=== PATIENT | male | born 1970 | race Caucasian/White ===

== ENCOUNTER 2016-04-22 19:34 | Emergency (ER) | payer OTHER ==
[~2016-04-22] VITALS: Ht 177.8 cm; Wt 120.4 kg
[~2016-04-22 19:34] MED LIST: FIORICET 50-301 EACH PO; GEMFIBROZIL600 MG PO; GLUCOPHAGE1000 M1 PO; GLUCOTROL5 MG PO; HYDROCODON-ACE1 EAC7 PO; IMITREX25 MG PO; LISINOPRIL10 MG PO; LISINOPRIL5 MG PO; LOPID600 MG PO; MOTRIN800 MG PO; NAPROSYN500 MG PO; NAPROXEN500 MG PO; PREDNISONE10 MG PO; PREDNISONE20 MG PO; PRINIVIL20 MG PO; TYLENOL WITH C1 EACH PO; ULTRAM50 MG PO; VALIUM5 MG PO; ZOCOR20 MG PO; ZOCOR40 MG PO; ZOFRAN ODT4 MG PO
[2016-04-22 20:25] LABS: HEMATOCRIT 44.7 % (38.0-50.0); MCH 28.9 PG (29.0-34.0); MCHC 35.6 G/DL (30.0-36.0); MCV 81.3 FL (86-99); MEAN PLAT.VOLUME 9.7 uM^3 (9.0-12.4); PLATELET COUNT 261 K/uL (156-360); RBC DIS.WIDTH-CV 12.6 % (11.8-14.6); RBC DIS.WIDTH-SD 37.1 % (39-53); WHITE BLOOD COUNT 8.6 K/uL (4.1-10.2)
[2016-04-22 20:34] LABS: CHLORIDE 102 mEq/L (99-109); POTASSIUM 4.1 mEq/L (3.7-5.4); SODIUM 139 mEq/L (136-147)
[2016-04-22 20:36] LABS: GLUCOSE 178 mg/dL (70-99)
[2016-04-22 20:37] LABS: ANION GAP 11 MEQ/L (2-14)
[2016-04-22 20:38] LABS: TOTAL BILIRUBIN 0.4 mg/dL (0.0-1.0)
[2016-04-22 20:40] LABS: ALKALINE PHOSPHATASE 34 IU/L (3-129); GFR ESTIMATE (CALCULATED) > 59 mL/min/
[2016-04-22 20:41] LABS: UREA NITROGEN (BUN) 22 mg/dL (9-23)
[2016-04-22 20:43] LABS: LIPASE 40 U/L (1.0-51.0)
[2016-04-22] MEDS ORDERED: ZOFRAN4 MG PO (22:00)
[2016-04-22] MEDS ORDERED: BENTYL10 MG PO (22:00)
[2016-04-22 22:34] VITALS: BP 149/104
== END 2016-04-22 22:35 | disposition home or self-care (01) ==
LOC: EXP 19:34 → EME 19:34 → EXP 22:35
DX: T62.91XA Toxic effect of unspecified noxious substance eaten as food, accidental (unintentional), initial encounter (principal); S53.402A Unspecified sprain of left elbow, initial encounter; I10 Essential (primary) hypertension; E11.9 Type 2 diabetes mellitus without complications; E78.5 Hyperlipidemia, unspecified; W22.09XA Striking against other stationary object, initial encounter
CPT/HCPCS: 73080; 80053; 81003; 83690; 85027; 99281; 99284

== ENCOUNTER 2016-06-22 14:29 | Emergency (ER) | payer OTHER ==
[~2016-06-22] VITALS: Ht 177.8 cm; Wt 120.0 kg
[~2016-06-22 14:29] MED LIST changes: +BENTYL10 MG PO; +ZOFRAN4 MG PO
[2016-06-22 14:32] VITALS: BP 144/97
[2016-06-22] MEDS ORDERED: VENTOLIN HFA18 GM IH (15:10)
[2016-06-22] MEDS ORDERED: TESSALON200 MG PO (15:10)
== END 2016-06-22 15:25 | disposition home or self-care (01) ==
LOC: EME 14:29
DX: J06.9 Acute upper respiratory infection, unspecified (principal)
CPT/HCPCS: 71020; 99281; 99284

== ENCOUNTER 2016-09-08 19:33 | Emergency (ER) | payer OTHER ==
[~2016-09-08] VITALS: Ht 177.8 cm; Wt 116.0 kg
[~2016-09-08 19:33] MED LIST changes: +TESSALON200 MG PO; +VENTOLIN HFA18 GM IH
[2016-09-08] MEDS ORDERED: LIDODERM 5% P1 PATCH TD (20:37)
[2016-09-08] MEDS ORDERED: NORCO 7.5/321 TABLET PO (20:37)
[2016-09-08] MEDS ORDERED: VALIUM5 MG PO (20:37)
[2016-09-08] MEDS ORDERED: INDOCIN50 MG PO (20:37)
[2016-09-08] MEDS ORDERED: PREDNISONE20 MG PO (20:37)
[2016-09-08 21:13] VITALS: BP 124/74
== END 2016-09-08 21:15 | disposition home or self-care (01) ==
LOC: EME 19:33
DX: M51.36 Other intervertebral disc degeneration, lumbar region (principal); M54.31 Sciatica, right side; E11.9 Type 2 diabetes mellitus without complications
CPT/HCPCS: 99281; 99284; J7512

== ENCOUNTER 2016-10-14 15:16 | Emergency (ER) | payer OTHER ==
[~2016-10-14] VITALS: Ht 177.8 cm; Wt 114.5 kg
[~2016-10-14 15:16] MED LIST changes: +INDOCIN50 MG PO; +LIDODERM 5% P1 PATCH TD; +NORCO 7.5/321 TABLET PO
[2016-10-14 16:21] LABS: HEMATOCRIT 43.9 % (38.0-50.0); MCH 29.4 PG (29.0-34.0); MCHC 35.1 G/DL (30.0-36.0); MCV 83.8 FL (86-99); MEAN PLAT.VOLUME 9.5 uM^3 (9.0-12.4); PLATELET COUNT 214 K/uL (156-360); RBC DIS.WIDTH-CV 12.4 % (11.8-14.6); RBC DIS.WIDTH-SD 37.7 % (39-53); RED BLOOD COUNT 5.24 M/uL (4.00-5.50)
[2016-10-14 16:38] LABS: CHLORIDE 103 mEq/L (99-109); SODIUM 138 mEq/L (136-147)
[2016-10-14 16:40] LABS: GLUCOSE 213 mg/dL (70-99)
[2016-10-14 16:41] LABS: ANION GAP 9 MEQ/L (2-14)
[2016-10-14 16:44] LABS: GFR ESTIMATE (CALCULATED) > 59 mL/min/; UREA NITROGEN (BUN) 12 mg/dL (9-23)
[2016-10-14 18:11] LABS: TROP-I INTERPRETATION NEGATIVE; TROPONIN-I < 0.01 ng/mL (0.0-0.30)
[2016-10-14 18:36] LABS: ADD MIUA? YES; BILIRUBIN NEGATIVE; BLOOD NEGATIVE; COLOR YELLOW ((YELLOW)); GLUCOSE (STRIP) 150; KETONES NEGATIVE; LEUKOCYTES NEGATIVE; NITRITE NEGATIVE; PROTEIN (STRIP) 30; SPECIFIC GRAVITY 1.024 (1.000-1.030); UROBILINOGEN 0.2 MG/DL (0.2-1.0)
[2016-10-14 18:42] LABS: BACTERIA NONE SEEN /HPF; EPITHELIAL CELLS RARE /HPF; HYALINE CASTS 0-5 /LPF; MUCUS 4+ /LPF; RED BLOOD CELLS 0-5 /HPF (0-5); UCUL ADDED? NO; WHITE BLOOD CELLS 0-5 /HPF (0-5)
[2016-10-14] MEDS ORDERED: FLEXERIL5 MG PO (19:44)
[2016-10-14] MEDS ORDERED: NORCO 5/3251 TABLET PO (19:44)
[2016-10-14 19:51] VITALS: BP 149/95
== END 2016-10-14 19:52 | disposition home or self-care (01) ==
LOC: EME 15:16
DX: M54.5 Low back pain (principal); R07.9 Chest pain, unspecified; G89.29 Other chronic pain; M47.896 Other spondylosis, lumbar region; I10 Essential (primary) hypertension; E11.9 Type 2 diabetes mellitus without complications; E78.5 Hyperlipidemia, unspecified; Z79.84 Long term (current) use of oral hypoglycemic drugs
CPT/HCPCS: 71020; 80048; 81003; 84484; 85027; 93005; 99281; 99284

== ENCOUNTER 2017-04-15 16:50 | Observation (INO) | payer OTHER ==
[~2017-04-15] VITALS: Ht 177.8 cm; Wt 115.0 kg
[~2017-04-15 16:50] MED LIST changes: +FLEXERIL5 MG PO; +NORCO 5/3251 TABLET PO
[2017-04-15 17:55] LABS: BASOPHIL (%) 0.4 % (0-1); EOSINOPHIL (%) 0.9 % (0-5); EOSINOPHIL COUNT 0.1 K/uL (0-0.3); HEMATOCRIT 40.2 % (38.0-50.0); HEMOGLOBIN 14.3 G/DL (12.5-16.6); IMMATURE GRANULOCYTE (%) 0.4 % (0.0-0.7); LYMPHOCYTE (%) 24.7 % (15-42); LYMPHOCYTE COUNT 1.4 K/uL (1.0-2.8); MCHC 35.6 G/DL (30.0-36.0); MCV 81.5 FL (86-99); MONOCYTE (%) 6.7 % (3-12); MONOCYTE COUNT 0.4 K/uL (0-0.8); NEUTROPHIL (%) 66.9 % (45-76); NEUTROPHIL COUNT 3.7 K/uL (1.8-6.4); PLATELET COUNT 183 K/uL (156-360); RBC DIS.WIDTH-CV 11.9 % (11.8-14.6); RBC DIS.WIDTH-SD 34.8 % (39-53); RED BLOOD COUNT 4.93 M/uL (4.00-5.50); WHITE BLOOD COUNT 5.5 K/uL (4.1-10.2)
[2017-04-15 18:04] LABS: CHLORIDE 101 mEq/L (99-109); POTASSIUM 4.1 mEq/L (3.7-5.4); PTT 29.1 SEC (25-37); SODIUM 134 mEq/L (136-147)
[2017-04-15 18:09] LABS: CREATININE 1.1 mg/dL (0.6-1.3); GFR ESTIMATE (CALCULATED) > 59 mL/min/ (58.99-99999)
[2017-04-15 18:10] LABS: UREA NITROGEN (BUN) 15 mg/dL (9-23)
[2017-04-15 18:16] LABS: TROP-I INTERPRETATION NEGATIVE; TROPONIN-I < 0.01 ng/mL (0.0-0.30)
[2017-04-15 18:19] LABS: GLUCOSE 536 mg/dL (70-99)
[2017-04-15] MEDS ORDERED: LISINOPRIL20 MG PO (22:23)
[2017-04-15] MEDS ORDERED: GLIPIZIDE5 MG PO (22:23)
[2017-04-15] MEDS ORDERED: ATORVASTATIN CA80 MG PO (22:24)
[2017-04-15 22:58] LABS: Estimated Average Glucose 306 mg/dL (70-123)
[2017-04-15 23:18] LABS: HDL CHOLESTEROL 29 MG/DL (Desirable>=40); LDL CHOLESTEROL 56 mg/dL (Desirable<100); NON-HDL CHOLESTEROL 111 mg/dL (Desirable<160); TOTAL CHOLESTEROL 140 mg/dL (Desirable<200); TRIGLYCERIDES 275 MG/DL (Normal: <150)
[2017-04-15 23:25] VITALS: BP 144/91
[2017-04-16 04:30] VITALS: BP 116/58
[2017-04-16 06:16] LABS: HEMOGLOBIN A1c (GLYCOHEMOGLOB) 12.3 % HGB (Below 5.7)
[2017-04-16 11:33] VITALS: BP 146/90
[2017-04-16] MEDS ORDERED: ASPIR-LOW81 MG PO (12:09)
[2017-04-16] MEDS ORDERED: NOVOLIN N100 UNITS/ SC (12:40)
== END 2017-04-16 13:20 | disposition home or self-care (01) ==
LOC: EME 16:50 → EDOF 21:53 → 5WEST 21:53 → EDOF 21:53 → ENRESERV 21:57 → 5WEST 22:57
PROVIDERS: Emergency Medicine; Hospitalist
DX: G45.9 Transient cerebral ischemic attack, unspecified (principal); E11.65 Type 2 diabetes mellitus with hyperglycemia; I10 Essential (primary) hypertension; Z86.73 Personal history of transient ischemic attack (TIA), and cerebral infarction without residual deficits; E78.5 Hyperlipidemia, unspecified; T38.3X6A Underdosing of insulin and oral hypoglycemic [antidiabetic] drugs, initial encounter; Z91.120 Patient's intentional underdosing of medication regimen due to financial hardship; E66.9 Obesity, unspecified; E87.1 Hypo-osmolality and hyponatremia; Z79.84 Long term (current) use of oral hypoglycemic drugs; Z82.49 Family history of ischemic heart disease and other diseases of the circulatory system
CPT/HCPCS: 70450; 70551; 71010; 80048; 80061; 82948; 83036; 84443; 84484; 85025; 85610; 85730; 93005; 93880; 99281; 99285; G0378; J1650; J1815; J7030

== ENCOUNTER 2017-06-22 21:41 | Emergency (ER) | payer OTHER ==
[~2017-06-22] VITALS: Ht 177.8 cm; Wt 127.5 kg
[~2017-06-22 21:41] MED LIST changes: +ASPIR-LOW81 MG PO; +ATORVASTATIN CA80 MG PO; +GLIPIZIDE5 MG PO; +LISINOPRIL20 MG PO; +NOVOLIN N100 UNITS/ SC
[2017-06-22] MEDS ORDERED: ZOFRAN ODT4 MG PO (23:11)
[2017-06-22] MEDS ORDERED: ULTRAM50 MG PO (23:11)
[2017-06-22 23:46] VITALS: BP 148/86
== END 2017-06-22 23:48 | disposition home or self-care (01) ==
LOC: EME 21:41
DX: S06.0X0A Concussion without loss of consciousness, initial encounter (principal); Y04.2XXA Assault by strike against or bumped into by another person, initial encounter; Y92.149 Unspecified place in prison as the place of occurrence of the external cause; Y99.0 Civilian activity done for income or pay
CPT/HCPCS: 70450; 99281; 99284

== ENCOUNTER 2017-09-10 11:46 | Emergency (ER) | payer OTHER ==
[~2017-09-10] VITALS: Ht 177.8 cm; Wt 123.2 kg
[2017-09-10 12:51] LABS: BASOPHIL (%) 0.6 % (0-1); EOSINOPHIL (%) 2.3 % (0-5); EOSINOPHIL COUNT 0.1 K/uL (0-0.3); HEMATOCRIT 42.6 % (38.0-50.0); HEMOGLOBIN 15.3 G/DL (12.5-16.6); IMMATURE GRANULOCYTE (%) 0.4 % (0.0-0.7); LYMPHOCYTE (%) 35.9 % (15-42); LYMPHOCYTE COUNT 1.8 K/uL (1.0-2.8); MCH 30.2 PG (29.0-34.0); MCHC 35.9 G/DL (30.0-36.0); MCV 84.2 FL (86-99); MONOCYTE (%) 13.1 % (3-12); MONOCYTE COUNT 0.7 K/uL (0-0.8); NEUTROPHIL (%) 47.7 % (45-76); NEUTROPHIL COUNT 2.4 K/uL (1.8-6.4); PLATELET COUNT 220 K/uL (156-360); RBC DIS.WIDTH-CV 12.3 % (11.8-14.6); RBC DIS.WIDTH-SD 37.2 % (39-53); RED BLOOD COUNT 5.06 M/uL (4.00-5.50); WHITE BLOOD COUNT 5.1 K/uL (4.1-10.2)
[2017-09-10 13:02] LABS: CHLORIDE 104 mEq/L (99-109); POTASSIUM 4.1 mEq/L (3.7-5.4); SODIUM 137 mEq/L (136-147)
[2017-09-10 13:03] LABS: GLUCOSE 185 mg/dL (70-99)
[2017-09-10 13:07] LABS: CREATININE 0.8 mg/dL (0.6-1.3); GFR ESTIMATE (CALCULATED) > 59 mL/min/ (58.99-99999)
[2017-09-10 13:08] LABS: UREA NITROGEN (BUN) 18 mg/dL (9-23)
[2017-09-10 14:20] VITALS: BP 145/97
== END 2017-09-10 14:21 | disposition home or self-care (01) ==
LOC: EME 11:46
PROVIDERS: Emergency Medicine
DX: R10.32 Left lower quadrant pain (principal); E11.65 Type 2 diabetes mellitus with hyperglycemia; Z79.4 Long term (current) use of insulin; I10 Essential (primary) hypertension; E78.5 Hyperlipidemia, unspecified; K21.9 Gastro-esophageal reflux disease without esophagitis; G43.909 Migraine, unspecified, not intractable, without status migrainosus; M47.896 Other spondylosis, lumbar region; F41.9 Anxiety disorder, unspecified; F32.9 Major depressive disorder, single episode, unspecified; Z86.73 Personal history of transient ischemic attack (TIA), and cerebral infarction without residual deficits
CPT/HCPCS: 74176; 80048; 85025; 99281; 99283

== ENCOUNTER 2017-11-07 17:19 | Emergency (ER) | payer OTHER ==
[~2017-11-07] VITALS: Ht 177.8 cm; Wt 120.0 kg
[2017-11-07] MEDS ORDERED: NAPROSYN500 MG PO (20:23)
[2017-11-07 20:43] VITALS: BP 130/83
== END 2017-11-07 20:44 | disposition home or self-care (01) ==
LOC: EME 17:19
PROC: 2W3CX1Z Immobilization of Right Lower Arm using Splint (ICD-10-PCS; principal; 2017-11-07)
DX: S60.221A Contusion of right hand, initial encounter (principal); W23.0XXA Caught, crushed, jammed, or pinched between moving objects, initial encounter
CPT/HCPCS: 73110; 73130